=== PATIENT | female | born 1970 | race Caucasian/White ===

== ENCOUNTER 2021-01-24 19:11 | Emergency (ER) | payer MEDICAID ==
[~2021-01-24] VITALS: Ht 175.3 cm; Wt 104.3 kg
[2021-01-24] MEDS ORDERED: CHLORPROMAZINE HCL 25 MG/ML 1ML AMP IV SCH (20:30)
[2021-01-24] MEDS ORDERED: ONDANSETRON 4MG INJ IVP ONE (20:30)
[2021-01-24] MEDS ORDERED: LACTATED RINGERS 1000ML 1,000 ML IV ONE (20:30)
[2021-01-24] MEDS ORDERED: DiphenhydrAMINE HCL 50 MG/ML VIAL IV ONE (20:30)
[2021-01-24] MEDS ORDERED: LIDOCAINE HCL MPF 1% 5ML VIAL ONE (20:30)
[2021-01-24] MEDS ORDERED: LIDOCAINE HCL/PF 4% 40 MG/1 ML 5ML AMP IVP SCH (20:30)
[2021-01-24 20:33] LABS: BASOPHILS % (AUTO) 0.4 % (0.0-5.0); HEMATOCRIT 41.2 % (36-48); LYMPHOCYTES % (AUTO) 27.2 % (21.0-51.0); MEAN CORPUSCULAR HEMOGLOBIN 31.3 pg (27.0-33.0); MEAN CORPUSCULAR HGB CONC 34.2 g/dL (32.0-36.0); MEAN CORPUSCULAR VOLUME 91.4 fL (79-99); MONOCYTES % (AUTO) 5.2 % (3.0-13.0); NEUTROPHILS % (AUTO) 65.6 % (40.0-77.0); PLATELET COUNT (AUTO) 194 K/uL (130-400); RED BLOOD CELL COUNT(AUTO) 4.51 MIL/uL (4.00-5.50); RED CELL DISTRIBUTION WIDTH 11.7 % (11.0-15.5); WHITE BLOOD COUNT (AUTO) 4.8 K/uL (4.8-10.8)
[2021-01-24 20:36] LABS: APPEARANCE,URINE Clear (CLEAR); BILIRUBIN,URINE Negative (NEGATIVE); COLOR,URINE Yellow (YELLOW); GLUCOSE, URINE (UA) Negative (NEGATIVE); KETONES,URINE Trace mg/dL (NEGATIVE); LEUKOCYTE ESTERASE ,URINE Small (NEGATIVE); NITRATE,URINE Negative (NEGATIVE); OCCULT BLOOD,URINE Negative (NEGATIVE); PH,URINE 8.5 (5.0-8.0); PROTEIN,URINE Negative (NEGATIVE)
[2021-01-24 20:41] LABS: HCG,QUAL RESULT NEGATIVE (NEGATIVE)
[2021-01-24 20:48] LABS: CREATININE 0.9 mg/dL (0.5-1.5); POTASSIUM 4.1 mmol/L (3.5-5.1)
[2021-01-24 20:52] LABS: ALBUMIN 3.6 g/dL (3.5-5.0); BILIRUBIN,TOTAL 0.4 mg/dL (0.2-1.0); TOTAL PROTEIN, SERUM 7.9 g/dL (6.0-8.3)
[2021-01-24 20:58] LABS: BACTERIA,URINE Few /HPF (None Seen); RBC,URINE 0-1 /HPF (0-1); SQUAMOUS EPITHELIAL CELL,UR 0-2 /HPF (0-2)
[2021-01-24 20:59] LABS: MUCUS,URINE Few LPF (None Seen)
[2021-01-24 22:22] VITALS: BP 104/52
== END 2021-01-24 22:27 | disposition home or self-care (01) ==
LOC: EDH 19:11
DX: K46.9 Unspecified abdominal hernia without obstruction or gangrene (principal); M54.9 Dorsalgia, unspecified; E66.9 Obesity, unspecified; M79.7 Fibromyalgia; F17.200 Nicotine dependence, unspecified, uncomplicated; Z71.6 Tobacco abuse counseling; Z88.0 Allergy status to penicillin; Z88.1 Allergy status to other antibiotic agents; Z88.2 Allergy status to sulfonamides; Z88.5 Allergy status to narcotic agent; Z88.8 Allergy status to other drugs, medicaments and biological substances; Z68.34 Body mass index [BMI] 34.0-34.9, adult; Z76.0 Encounter for issue of repeat prescription; Z79.899 Other long term (current) drug therapy
CPT/HCPCS: 36415; 80053; 81001; 81025; 83690; 85025; 96361 ×2; 96374; 96375; 99284; J1200; J2405; J3230; J3490 ×2; J7120

== ENCOUNTER 2021-05-20 20:48 | Emergency (ER) | payer MEDICAID ==
[~2021-05-20] VITALS: Ht 175.3 cm; Wt 106.6 kg
[2021-05-20 21:25] LABS: BASOPHILS % (AUTO) 0.5 % (0.0-5.0); HEMATOCRIT 45.3 % (36-48); LYMPHOCYTES % (AUTO) 35.7 % (21.0-51.0); MEAN CORPUSCULAR HEMOGLOBIN 30.8 pg (27.0-33.0); MEAN CORPUSCULAR HGB CONC 33.8 g/dL (32.0-36.0); MEAN CORPUSCULAR VOLUME 91.1 fL (79-99); MONOCYTES % (AUTO) 4.6 % (3.0-13.0); PLATELET COUNT (AUTO) 214 K/uL (130-400); RED BLOOD CELL COUNT(AUTO) 4.97 MIL/uL (4.00-5.50); RED CELL DISTRIBUTION WIDTH 11.8 % (11.0-15.5); WHITE BLOOD COUNT (AUTO) 5.5 K/uL (4.8-10.8)
[2021-05-20 21:30] LABS: APPEARANCE,URINE CLOUDY (CLEAR); BILIRUBIN,URINE Negative (NEGATIVE); COLOR,URINE Orange (YELLOW); GLUCOSE, URINE (UA) Negative (NEGATIVE); KETONES,URINE Negative (NEGATIVE); LEUKOCYTE ESTERASE ,URINE Small (NEGATIVE); NITRATE,URINE Negative (NEGATIVE); OCCULT BLOOD,URINE Large (NEGATIVE); PROTEIN,URINE Negative (NEGATIVE)
[2021-05-20 21:38] LABS: RBC,URINE >100 /HPF (0-1)
[2021-05-20 21:39] LABS: CREATININE 0.9 mg/dL (0.5-1.5)
[2021-05-20 21:39] LABS: BACTERIA,URINE Few /HPF (None Seen); SQUAMOUS EPITHELIAL CELL,UR Few /HPF (0-2)
[2021-05-20 21:44] LABS: ALBUMIN 4.1 g/dL (3.5-5.0); BILIRUBIN,TOTAL 0.3 mg/dL (0.2-1.0); TOTAL PROTEIN, SERUM 8.6 g/dL (6.0-8.3)
[2021-05-21] MEDS ORDERED: KCL 20 MEQ ERTAB PO ONE
[2021-05-21] MEDS ORDERED: MORPHINE 4 MG SYG IV ONE ×2 (00:30→02:00)
[2021-05-21] MEDS ORDERED: ONDANSETRON 4MG INJ IVP ONE (00:30)
[2021-05-21 01:31] VITALS: BP 124/69
[2021-05-21] MEDS ORDERED: MORPHINE 4 MG SYG IM ONE (02:00)
== END 2021-05-21 02:16 | disposition home or self-care (01) ==
LOC: EDH 20:48
DX: M54.50 Low back pain, unspecified (principal); R10.9 Unspecified abdominal pain; J44.9 Chronic obstructive pulmonary disease, unspecified; M79.7 Fibromyalgia; F41.9 Anxiety disorder, unspecified; F17.200 Nicotine dependence, unspecified, uncomplicated; Z88.0 Allergy status to penicillin; Z88.1 Allergy status to other antibiotic agents; Z88.2 Allergy status to sulfonamides; Z88.5 Allergy status to narcotic agent; Z88.8 Allergy status to other drugs, medicaments and biological substances
CPT/HCPCS: 36415; 74176; 80053; 81001; 83690; 85025; 96374; 96375; 96376; 99284; J2270 ×2; J2405

== ENCOUNTER 2021-06-20 02:19 | Emergency (ER) | payer MEDICAID ==
[~2021-06-20] VITALS: Ht 175.3 cm; Wt 98.9 kg
[2021-06-20] MEDS ORDERED: LORAZEPAM 2 MG/ML 1 ML VIAL IVP ONE (04:00)
[2021-06-20 04:04] LABS: BASOPHILS % (AUTO) 0.8 % (0.0-5.0); EOSINOPHILS % (AUTO) 1.8 % (0.0-8.0); HEMATOCRIT 40.2 % (36-48); LYMPHOCYTES % (AUTO) 32.4 % (21.0-51.0); MEAN CORPUSCULAR HEMOGLOBIN 31.4 pg (27.0-33.0); MEAN CORPUSCULAR HGB CONC 33.6 g/dL (32.0-36.0); MEAN CORPUSCULAR VOLUME 93.5 fL (79-99); MONOCYTES % (AUTO) 9.8 % (3.0-13.0); NEUTROPHILS % (AUTO) 54.7 % (40.0-77.0); PLATELET COUNT (AUTO) 236 K/uL (130-400); RED CELL DISTRIBUTION WIDTH 12.3 % (11.0-15.5); WHITE BLOOD COUNT (AUTO) 6.5 K/uL (4.8-10.8)
[2021-06-20 04:05] LABS: BILIRUBIN,URINE Negative (NEGATIVE); COLOR,URINE Yellow (YELLOW); GLUCOSE, URINE (UA) Negative (NEGATIVE); KETONES,URINE Negative (NEGATIVE); LEUKOCYTE ESTERASE ,URINE Small (NEGATIVE); NITRATE,URINE Negative (NEGATIVE); OCCULT BLOOD,URINE Moderate (NEGATIVE); PROTEIN,URINE Negative (NEGATIVE)
[2021-06-20 04:06] LABS: APPEARANCE,URINE CLEAR (CLEAR)
[2021-06-20 04:17] LABS: BACTERIA,URINE Few /HPF (None Seen); CREATININE 0.8 mg/dL (0.5-1.5); POTASSIUM 4.6 mmol/L (3.5-5.1)
[2021-06-20 04:22] LABS: ALBUMIN 3.9 g/dL (3.5-5.0); BILIRUBIN,TOTAL 0.5 mg/dL (0.2-1.0); TOTAL PROTEIN, SERUM 7.7 g/dL (6.0-8.3)
[2021-06-20 06:19] VITALS: BP 122/71
== END 2021-06-20 06:34 | disposition home or self-care (01) ==
LOC: EDH 02:19
DX: F41.9 Anxiety disorder, unspecified (principal); F17.200 Nicotine dependence, unspecified, uncomplicated; Z88.0 Allergy status to penicillin; Z88.2 Allergy status to sulfonamides; Z88.1 Allergy status to other antibiotic agents; Z88.6 Allergy status to analgesic agent; Z88.8 Allergy status to other drugs, medicaments and biological substances; Z90.89 Acquired absence of other organs; Z98.890 Other specified postprocedural states; Z90.49 Acquired absence of other specified parts of digestive tract
CPT/HCPCS: 36415; 71045; 80053; 81001; 84484; 85025; 93005; 96374; 99285; J2060

== ENCOUNTER 2023-04-30 11:36 | Emergency (ER) | payer MEDICAID ==
[~2023-04-30] VITALS: Ht 175.3 cm; Wt 99.8 kg
[~2023-04-30 11:36] MED LIST: MACR100 PO; PHEN-847 PO
[2023-04-30] MEDS ORDERED: MORPHINE 2 MG SYG IVP ONE (12:00)
[2023-04-30] MEDS ORDERED: ONDANSETRON 4MG INJ IVP ONE (12:00)
[2023-04-30] MEDS ORDERED: 0.9%NACL 1000ML 1,000 ML IV ONE (12:00)
[2023-04-30 12:21] LABS: BASOPHILS # (AUTO) 0.02 K/uL (0.00-0.20); BASOPHILS % (AUTO) 0.3 % (0.0-5.0); EOSINOPHILS # (AUTO) 0.08 K/uL (0.00-0.70); EOSINOPHILS % (AUTO) 1.3 % (0.0-8.0); HEMATOCRIT 37.5 % (36-48); IMMATURE GRANULOCYTE ABSOLUTE 0.01 K/uL (0-1); LYMPHOCYTES # (AUTO) 1.8 K/uL (1.0-4.8); LYMPHOCYTES % (AUTO) 29.3 % (21.0-51.0); MEAN CORPUSCULAR HEMOGLOBIN 31.1 pg (27.0-33.0); MEAN CORPUSCULAR HGB CONC 35.2 g/dL (32.0-36.0); MEAN CORPUSCULAR VOLUME 88.4 fL (79-99); MONOCYTES # (AUTO) 0.5 K/uL (0.1-1.0); NEUTROPHILS # (AUTO) 3.6 K/uL (1.8-7.7); NEUTROPHILS % (AUTO) 59.9 % (40.0-77.0); PLATELET COUNT (AUTO) 163 K/uL (130-400); RED BLOOD CELL COUNT(AUTO) 4.24 MIL/uL (4.00-5.50); RED CELL DISTRIBUTION WIDTH 11.9 % (11.0-15.5)
[2023-04-30 12:26] LABS: CREATININE 0.8 mg/dL (0.5-1.5); POTASSIUM 3.4 mmol/L (3.5-5.1)
[2023-04-30 12:31] LABS: ALBUMIN 2.8 g/dL (3.5-5.0); BILIRUBIN,TOTAL 0.4 mg/dL (0.2-1.0); TOTAL PROTEIN, SERUM 6.8 g/dL (6.0-8.3)
[2023-04-30] MEDS ORDERED: KCL 20 MEQ ERTAB PO ONE (13:00)
[2023-04-30 13:11] LABS: APPEARANCE,URINE CLEAR (CLEAR); BILIRUBIN,URINE NEGATIVE (NEGATIVE); COLOR,URINE LIGHT-YELLOW (YELLOW); GLUCOSE, URINE (UA) 50 mg/dL (NEGATIVE); KETONES,URINE NEGATIVE (NEGATIVE); LEUKOCYTE ESTERASE ,URINE 500 Leu/uL (NEGATIVE); NITRATE,URINE NEGATIVE (NEGATIVE); OCCULT BLOOD,URINE NEGATIVE (NEGATIVE); PH,URINE 6.5 (5.0-8.0); PROTEIN,URINE NEGATIVE (NEGATIVE); UROBILINOGEN,URINE 0.2 mg/dL (0.2-1.0)
[2023-04-30 13:15] LABS: ADD UA MICROSCOPIC YES
[2023-04-30 13:23] LABS: BACTERIA,URINE RARE /HPF (None Seen); MUCUS,URINE RARE LPF (None Seen); SQUAMOUS EPITHELIAL CELL,UR RARE /HPF (0-2)
[2023-04-30 14:22] VITALS: BP 101/52; PULSE 80; RESP 17; O2SAT 96
[2023-04-30] MEDS ORDERED: CEPH500B PO (14:42)
[2023-04-30] MEDS ORDERED: METH4TAB3 PO (14:42)
[2023-04-30] MEDS ORDERED: MORPHINE 4 MG SYG IM ONE (15:00)
== END 2023-04-30 16:07 | disposition home or self-care (01) ==
LOC: EDH 11:36 → EEVIPCON 11:36 → EDH 16:07
DX: N39.0 Urinary tract infection, site not specified (principal); M54.50 Low back pain, unspecified; E66.9 Obesity, unspecified; M79.7 Fibromyalgia; F17.200 Nicotine dependence, unspecified, uncomplicated; Z88.0 Allergy status to penicillin; Z88.1 Allergy status to other antibiotic agents; Z88.2 Allergy status to sulfonamides; Z88.5 Allergy status to narcotic agent; Z90.49 Acquired absence of other specified parts of digestive tract; Z90.710 Acquired absence of both cervix and uterus
CPT/HCPCS: 99285; 74176; 96374; 96361; 96375; 80053; 83690; 85025; 87088; 81001; 36415; 96372; J2270 ×2; J7030; J2405

== ENCOUNTER 2023-11-23 16:59 | Emergency (ER) | payer MEDICAID ==
[~2023-11-23] VITALS: Ht 175.3 cm; Wt 95.7 kg
[~2023-11-23 16:59] MED LIST changes: +CEPH500B PO; +METH4TAB3 PO
[2023-11-23] MEDS: ONDANSETRON 4MG INJ IVP ONE (17:30)
[2023-11-23] MEDS: 0.9%NACL 1000ML 1,000 ML IV ONE (17:30)
[2023-11-23 19:13] LABS: BASOPHILS # (AUTO) 0.03 K/uL (0.00-0.20); BASOPHILS % (AUTO) 0.5 % (0.0-5.0); CREATININE 0.9 mg/dL (0.5-1.0); EOSINOPHILS % (AUTO) 1.7 % (0.0-8.0); HEMATOCRIT 37.9 % (36-48); IMMATURE GRANULOCYTE ABSOLUTE 0.02 K/uL (0-1); LYMPHOCYTES # (AUTO) 2.2 K/uL (1.0-4.8); LYMPHOCYTES % (AUTO) 37.7 % (21.0-51.0); MEAN CORPUSCULAR HEMOGLOBIN 30.8 pg (27.0-33.0); MEAN CORPUSCULAR HGB CONC 34.6 g/dL (32.0-36.0); MEAN CORPUSCULAR VOLUME 89.2 fL (79-99); MONOCYTES # (AUTO) 0.5 K/uL (0.1-1.0); MONOCYTES % (AUTO) 8.6 % (3.0-13.0); NEUTROPHILS % (AUTO) 51.2 % (40.0-77.0); PLATELET COUNT (AUTO) 151 K/uL (130-400); POTASSIUM 3.8 mmol/L (3.5-5.1); RED BLOOD CELL COUNT(AUTO) 4.25 MIL/uL (4.00-5.50); WHITE BLOOD COUNT (AUTO) 5.9 K/uL (4.8-10.8)
[2023-11-23 19:18] LABS: ALBUMIN 3.3 g/dL (3.5-5.0); BILIRUBIN,TOTAL 0.4 mg/dL (0.2-1.0)
[2023-11-23 19:46] LABS: APPEARANCE,URINE CLOUDY (CLEAR); BILIRUBIN,URINE NEGATIVE (NEGATIVE); COLOR,URINE YELLOW (YELLOW); GLUCOSE, URINE (UA) NEGATIVE (NEGATIVE); KETONES,URINE 5 mg/dL (NEGATIVE); LEUKOCYTE ESTERASE ,URINE NEGATIVE Leu/uL (NEGATIVE); NITRATE,URINE NEGATIVE (NEGATIVE); OCCULT BLOOD,URINE NEGATIVE (NEGATIVE); PH,URINE 5.5 (5.0-8.0); PROTEIN,URINE 30 mg/dL (NEGATIVE); UROBILINOGEN,URINE 6 mg/dL (0.2-1.0)
[2023-11-23 19:47] LABS: ADD UA MICROSCOPIC YES
[2023-11-23 19:49] VITALS: BP 119/50; PULSE 82; RESP 17; O2SAT 98
[2023-11-23 19:50] LABS: MUCUS,URINE MANY LPF (None Seen); SQUAMOUS EPITHELIAL CELL,UR RARE /HPF (0-2)
[2023-11-23] MEDS: acetaMINOPHEN 500 MG TABLET PO ONE (20:05)
[2023-11-23 20:40] LABS: AMPHET/METH SCREEN,URINE NEGATIVE (NEGATIVE); BARBITURATE SCREEN, URINE NEGATIVE (NEGATIVE); BENZODIAZEPINES SCREEN,URINE NEGATIVE (NEGATIVE); CANNABINOID SCREEN,URINE POSITIVE (NEGATIVE); COCAINE SCREEN,URINE NEGATIVE (NEGATIVE); OPIATE SCREEN,URINE NEGATIVE (NEGATIVE); PHENCYCLIDINE SCREEN,URINE NEGATIVE (NEGATIVE)
== END 2023-11-23 21:49 | disposition home or self-care (01) ==
LOC: EDH 16:59
DX: S80.02XA Contusion of left knee, initial encounter (principal); M54.50 Low back pain, unspecified; R31.9 Hematuria, unspecified; M79.7 Fibromyalgia; F17.200 Nicotine dependence, unspecified, uncomplicated; Z88.0 Allergy status to penicillin; Z88.1 Allergy status to other antibiotic agents; Z88.2 Allergy status to sulfonamides; Z88.5 Allergy status to narcotic agent; Z90.49 Acquired absence of other specified parts of digestive tract; Z90.710 Acquired absence of both cervix and uterus; W18.39XA Other fall on same level, initial encounter; Y93.89 Activity, other specified; Y92.89 Other specified places as the place of occurrence of the external cause; Y99.8 Other external cause status
CPT/HCPCS: 36415; 70450; 71045; 72125; 74176; 80053; 80305; 81001; 83690; 85025

== ENCOUNTER 2024-08-15 18:46 | Emergency (ER) | payer MEDICAID ==
[~2024-08-15] VITALS: Ht 175.3 cm; Wt 72.6 kg
--- NOTE | 2024-08-15 19:16 | ERN ---
ED Note History of Present Illness Stated Complaint: MIDLINE LEAKING Chief Complaint: Other Problems Time Seen by MD: 18:52 Time Seen by Midlevel: 18:52 Dictation: The Patient is a 54-year-old female with a history of hypertension, hyperlipidemia, chronic pain who presents to the emergency department with complaints of nonfunctioning left midline. Patient reports she has her midline that was placed in August 05 at [facility] for antibiotic infusion for UTI. Patient went to the infusion center today and was told the midline was infiltrated and leaking. Allergies: Coded Allergies: Penicillins (Unverified Allergy, Unknown, 01/24/21) Quinolones (Unverified Allergy, Unknown, 01/24/21) Sulfa (Sulfonamide Antibiotics) (Unverified Allergy, Unknown, 01/24/21) cephalexin (Unverified Allergy, Unknown, 01/24/21) clindamycin (Unverified Allergy, Unknown, 01/24/21) doxycycline (Unverified Allergy, Unknown, 01/24/21) ketorolac (Unverified Allergy, Unknown, 01/24/21) levofloxacin (Unverified Allergy, Unknown, 01/24/21) metronidazole (Unverified Allergy, Unknown, 01/24/21) procaine (Unverified Allergy, Unknown, 01/24/21) tramadol (Unverified Allergy, Unknown, 01/24/21) trimethoprim (Unverified Allergy, Unknown, 01/24/21) Home Meds Active Scripts Methylprednisolone (Medrol) 4 Mg Tab.ds.pk, 4 MG PO AD, #1 UNIT Prov:DOROTHY ENRIQUEZ NP 04/30/23 Cephalexin Monohydrate (Keflex) 500 Mg Cap, 500 MG PO QID for 7 Days, #28 CAP Prov:DOROTHY ENRIQUEZ BUSINESS SYSTEMS ADVISOR 04/30/23 Nitrofurantoin/Nitrofuran Mac (Macrobid) 100 Mg Cap, 1 CAP PO BID for 7 Days, #14 CAP 0 Refills Prov:GABBY IBARRA 08/27/21 Phenazopyridine HCl (Pyridium) 200 Mg Tab, 200 MG PO TIDPC, #6 TAB TAKE WITH FOOD TO PREVENT STOMACH UPSET. Prov:GABBY IBARRA 08/27/21 Past Medical History Past Medical History: A-Fib, Diabetes-Type II, High Cholesterol, Hypertension, Other Additional Past Medical Hx: BRAIN TUMOR Surgical History: Appendectomy, Hysterectomy, Cholecystectomy, Other Surgical History Other: oral surgery Family History: Negative Social History: Smokers History: Not Applicable : 4 Para: 4 Aborts: 0 RN Note Reviewed/Agreed w/PFSH: Yes Review of System Dictation Constitutional: Negative for fever,chills, and weight loss Eyes: Negative for injury, pain,redness, and discharge ENT: Negative for injury,pain or swelling Cardiovascular: Negative for chest pain, palpitations, and edema Respiratory: Negative for shortness of breath, cough, and wheezing, Abdomen/GI: Negative for abdominal pain, nausea, vomiting, diarrhea, and constipation Back: Negative for injury and pain : Negative for injury, bleeding and discharge MS/Extremity: Negative for injury and deformity Skin: Negative for rash, and discoloration Neuro: Negative for headache, weakness, numbness, tingling, and seizure Psych: Negative for suicide ideation, homicidal ideation, and hallucinations Initial Vital Sign VS Vital Signs Date Time Temp Pulse Resp B/P (MAP) Pulse Ox O2 Delivery O2 Flow Rate FiO2 08/15/24 18:49 98.2 98 18 114/50 98 Room Air 0 Physical Exam Dictation Vital Signs reviewed General Appearance: Alert, oriented x 3, no acute distress, well developed, nourished. Head and Face: non-traumatic. Eyes: PERRL, pink conjunctivas, eyelid no trauma, anterior chamber with arcus senilis. Ears: Pinnas intact and no signs of trauma or erythema ear canals clear and no discharge TM no erythema Nose: No discharge, no bleeding. Oropharynx: Mouth normal, tongue pink. pharynx clear,no erythema, tonsils no exudates, no abscesses noted, mucous membrane moist Neck: Supple, non-tender, no thyromegaly, no masses, no JVD, no bruits Breast:Deferred Chest:No tenderness, no crepitus, no paradoxical movement, no retractions Lungs:Clear, well-ventilated, symmetric, no rales, no wheezing, no rhonchi, no stridor, good breath sounds bilaterally Heart: Regular rate, regular rhythm, no murmur, no gallops Vascular: no peripheral edema, Abdomen: Soft, positive bowel sounds, nondistended, no guarding, nontender, no rebound, no masses no hepatomegaly, no splenomegaly, no Mcclure's sign, no hernias. Rectal: Deferred Genital: Deferred Neurological: Normal speech, motor function intact, sensory function intact Musculoskeletal: Neck nontender, full range of motion, back nontender, full range of motion, Extremities: nontender, full range of motion Skin: Color pink, dry, no turgor, no rash, no lacerations, no abrasions, no c ontusions. Midline noticed to left upper arm, no erythema, no swelling Lymphatic: Deferred Results (Laboratory/Radiology) Laboratory/Radiology Laboratory Tests Test 08/15/24 22:53 Prothrombin Time 11.7 SEC (9.6-11.6) H Prothromb Time International Ratio 1.12 (0.85-1.15) Activated Partial Thromboplast Time 28.0 SEC (26.3-35.5) Labs Reviewed?: Yes ED Course ED Course Orders Procedure Category Date Status Time *Nursing CPOE 08/15/24 Transmitted Communication: 19:08 Place Midline Access CPOE 08/15/24 Transmitted 20:10 Pt And Ptt LAB 08/15/24 Complete 20:21 Vital Signs Date Time Temp Pulse Resp B/P (MAP) Pulse Ox O2 Delivery O2 Flow Rate FiO2 08/15/24 18:49 98.2 98 18 114/50 98 Room Air 0 Medical Decision Making MDM The Patient is a 54-year-old female with a history of hypertension, hyperlipidemia, chronic pain who presents to the emergency department with complaints of nonfunctioning left midline. Patient reports she has her midline that was placed in August 05 at [facility] for antibiotic infusion for UTI. Patient went to the infusion center today and was told the midline was infiltrated and leaking. Midline was replaced. Patient tolerated well. Will be discharge to follow up with PCP. Differential diagnosis: Midline dysfunction, midline infiltration Need for hospitalization: Patient does not meet criteria for hospitalization. There are no social concerns with this patient. DX & DISP Disposition: Discharge Departure Impression: Primary Impression: Displacement of peripheral intravenous catheter Condition: Stable Additional Instructions: FOLLOW-UP WITH PRIMARY CARE PROVIDER IN 1 TO 2 DAYS. TAKE MEDICATIONS DIRECTED HERE IN THE EMERGENCY ROOM. OKAY TO CONTINUE HOME MEDICATIONS UNLESS OTHERWISE DISCUSSED DURING YOUR VISIT IN THE EMERGENCY ROOM TODAY. RETURN TO YOUR NEAREST EMERGENCY ROOM IF SYMPTOMS WORSEN OR IF THERE IS NO IMPROVEMENT. CALL 911 IF YOU NEED IMMEDIATE ASSISTANCE. TAKE TYLENOL OR MOTRIN [id number] NEEDED AND IF NO CONTRAINDICATIONS ARE PRESENT. INCREASE ORAL HYDRATION. A WOUND CULTURE OR URINE CULTURE WAS ORDERED HERE IN THE EMERGENCY ROOM DEPARTMENT PLEASE FOLLOW-UP WITH PRIMARY CARE PROVIDER AND ADVISE THEM TO GET REPEAT PORTS FROM OUR FACILITY. IF YOU HAD ANY LILIANA WRAP/SPLINTS THAT WERE APPLIED HERE, PLEASE DO NOT REMOVE THEM UNTIL YOU SEE YOUR PRIMARY CARE OR SPECIALTY. Referrals: OSEI TEE (PCP) Time of Disposition: 00:05 I have reviewed the case, and I agree with, Diagnosis and Plan JOI GRIMES DEPUTY INSURANCE COMMISSIONER August 15, 2024 19:16
--- NOTE | 2024-08-15 21:30 | NUR ---
ADVISED PT WE NEEDED A LAB BEFORE MIDLINE PLACEMENT. PT IS UPSET DOES NOT WANT TO GET LABS DONE. STATES BAD VEINS THATS WHY I HAVE MIDLINE PLACED. ONLY WANTS MIDLINE PLACED.
--- NOTE | 2024-08-15 21:31 | NUR ---
NOTIFIED GAIL RASHID PT DOESNT WANT LABS DRAWN WAS UNAWARE OF LABS NEEDING TO BE DONE
--- NOTE | 2024-08-15 22:49 | NUR ---
ASSUMED PT CARE AT THIS TIME
[2024-08-15 23:15] LABS: INR 1.12 (0.85-1.15); PROTHROMBIN TIME 11.7 SEC (9.6-11.6)
--- NOTE | 2024-08-15 23:48 | NUR ---
PER PICC LINE AVIATION TACTICAL READINESS OFFICER BHAVIK, MIDLINE IS READY FOR USE
--- NOTE | 2024-08-15 23:50 | NUR ---
PREVIOUS MIDLINE TO LEFT ARM REMOVED BY PICC LINE NURSE
[2024-08-16 00:12] VITALS: BP 116/59; PULSE 90; RESP 18; TEMP 98.5; O2SAT 98
== END 2024-08-16 00:20 | disposition home or self-care (01) ==
LOC: EDH 18:46
DX: T85.628A Displacement of other specified internal prosthetic devices, implants and grafts, initial encounter (principal); E11.9 Type 2 diabetes mellitus without complications; E78.00 Pure hypercholesterolemia, unspecified; F17.200 Nicotine dependence, unspecified, uncomplicated; I10 Essential (primary) hypertension; I48.91 Unspecified atrial fibrillation; Z88.0 Allergy status to penicillin; Z88.1 Allergy status to other antibiotic agents; Z88.2 Allergy status to sulfonamides; Z88.5 Allergy status to narcotic agent; Z90.49 Acquired absence of other specified parts of digestive tract; Z90.710 Acquired absence of both cervix and uterus; Y82.8 Other medical devices associated with adverse incidents; Y92.89 Other specified places as the place of occurrence of the external cause
CPT/HCPCS: 36415; 85610; 85730; 99282; 99283